=== PATIENT | female | born 1995 | race Hispanic/Latino ===

== ENCOUNTER 2022-03-14 05:55 | Day surgery (SDC) | payer OTHER ==
[2022-03-12 14:39] LABS: BASOPHILS % (AUTO) 0.4 % (0.0-5.0); EOSINOPHILS % (AUTO) 0.9 % (0.0-8.0); HEMATOCRIT 41.2 % (36-48); MEAN CORPUSCULAR HGB CONC 33.7 g/dL (32.0-36.0); MEAN CORPUSCULAR VOLUME 88.8 fL (79-99); MONOCYTES % (AUTO) 5.2 % (3.0-13.0); NEUTROPHILS % (AUTO) 66.1 % (40.0-77.0); PLATELET COUNT (AUTO) 297 K/uL (130-400); RED BLOOD CELL COUNT(AUTO) 4.64 MIL/uL (4.00-5.50); RED CELL DISTRIBUTION WIDTH 12.5 % (11.0-15.5); WHITE BLOOD COUNT (AUTO) 10.7 K/uL (4.8-10.8)
[2022-03-13 09:17] VITALS: BP 135/78
[~2022-03-14] VITALS: Ht 149.9 cm; Wt 67.9 kg
[2022-03-14] VITALS (18 sets, daily range): BP systolic 103–134; BP diastolic 60–83
[~2022-03-14 05:55] MED LIST: BUPIVACAINE/PF 0.5% 10ML VIAL ONE
[2022-03-14] MEDS: CEFAZOLIN SODIUM 2 GM VIAL IVPB SCH ×2 (06:00→07:41)
[2022-03-14] MEDS: LACTATED RINGERS 1000ML 1,000 ML IV SCH ×2 (06:26→08:27)
[2022-03-14] MEDS ORDERED: FENTANYL CITRATE PF 50 MCG/1 ML 2ML VIAL ONE (07:13)
[2022-03-14] MEDS ORDERED: MIDAZOLAM HCL 1 MG/ML 2ML VIAL ONE (07:13)
[2022-03-14] MEDS ORDERED: ROCURONIUM 10MG/1ML SYR 10 MG/ML ML ONE (07:13)
[2022-03-14] MEDS ORDERED: ONDANSETRON 4MG INJ ONE ×2 (07:13→08:55)
[2022-03-14] MEDS ORDERED: PROPOFOL 10 MG/ML 20ML VIAL IV ONE (07:13)
[2022-03-14] MEDS ORDERED: GLYCOPYRROLATE 1 MG/5 ML SYRINGE ONE ×2 (08:29→09:40)
[2022-03-14] MEDS ORDERED: NEOSTIGMINE 5MG/5ML SYR IV ONE (08:29)
[2022-03-14] MEDS ORDERED: MEPERIDINE-PF 25 MG/ML SYG ONE (08:55)
[2022-03-14] MEDS ORDERED: KETOROLAC 30MG VIAL (30MG/ML) ONE (08:55)
[2022-03-14] MEDS ORDERED: METOCLOPRAMIDE 10 MG/2 ML VIAL ONE (09:18)
== END 2022-03-14 10:25 | disposition home or self-care (01) ==
LOC: DAH 05:55
PROVIDERS: ATTEND Obstetrics & Gynecology
DX: Z30.2 Encounter for sterilization (principal); N81.4 Uterovaginal prolapse, unspecified; Z20.822 Contact with and (suspected) exposure to COVID-19; Z98.890 Other specified postprocedural states
CPT/HCPCS: 84703; 85025; 86850; 86900; 86901; 87426; 36415; 58661; A6260; A4663; J7120 ×2; A4351 ×2; A4606; J3010; J3490 ×4; J2710; J2250; J2704; J2405 ×2; J1885; J2175; J2765; J0690; C1769 ×2; G0168; A4649 ×2; A4215 ×2; A4223; A4222; A4221; A4510

== ENCOUNTER 2022-07-19 19:34 | Emergency (ER) | payer OTHER ==
[~2022-07-19] VITALS: Ht 152.4 cm; Wt 71.7 kg
[2022-07-19 19:39] VITALS: BP 143/81
== END 2022-07-19 20:42 | disposition home or self-care (01) ==
LOC: EDH 19:34
DX: R11.2 Nausea with vomiting, unspecified (principal); R19.7 Diarrhea, unspecified
CPT/HCPCS: 99281

== ENCOUNTER 2023-07-02 09:20 | Emergency (ER) | payer BC, OTHER ==
[~2023-07-02] VITALS: Ht 149.9 cm; Wt 76.2 kg
[2023-07-02] MEDS: ACETAMINOPHEN 500 MG TABLET ONE (09:29)
[2023-07-02] MEDS: ACETAMINOPHEN 500 MG TABLET PO ONE (09:29)
[2023-07-02 09:56] LABS: RAPID GROUP A STREP negative (NEGATIVE)
[2023-07-02 09:58] LABS: SARS-CoV-2, RNA, NAAT NEGATIVE SARS CoV-2 (NEGATIVE)
[2023-07-02 10:06] LABS: INFLUENZA TYPE B Negative For Type B (NEGATIVE)
[2023-07-02 10:24] LABS: INFLUENZA TYPE A Positive For Type A (NEGATIVE)
[2023-07-02 10:54] VITALS: TEMP 98.5
[2023-07-02 10:55] VITALS: BP 119/71; PULSE 81; RESP 18; O2SAT 98
[2023-07-02] MEDS ORDERED: OSEL75 PO (11:08)
== END 2023-07-02 11:24 | disposition home or self-care (01) ==
LOC: EDH 09:20
DX: J10.1 Influenza due to other identified influenza virus with other respiratory manifestations (principal); Z20.822 Contact with and (suspected) exposure to COVID-19
CPT/HCPCS: 87635; 87804; 87880